=== PATIENT | male | born 1970 | race Caucasian/White ===

== ENCOUNTER 2020-12-04 12:38 | Inpatient (IN) | payer OTHER ==
[2020-12-04 13:35] VITALS: BMI 19.0
[2020-12-04] MEDS ORDERED: ALBUTEROL SO4 HFA INHALER IH PRN (15:12)
[2020-12-04] MEDS ORDERED: MAG HYDROX/AL HYDROX/SIMETH 30 ML UNIT-DOSE CUP PO PRN (15:12)
[2020-12-04] MEDS ORDERED: MENTHOL/PHENOL 1 EACH UD MM PRN (15:12)
[2020-12-04] MEDS ORDERED: ACETAMINOPHEN 325 MG TABLET (FP) PO PRN ×2 (15:12)
[2020-12-04] MEDS ORDERED: NICOTINE POLACRILEX 2 MG GUM BUC PRN (15:12)
[2020-12-04] MEDS ORDERED: ONDANSETRON *ODT* 4 MG TABLET SL PRN (15:12)
[2020-12-04] MEDS ORDERED: IBUPROFEN 400 MG TABLET (FP) PO PRN (15:12)
[2020-12-04] MEDS ORDERED: METHOCARBAMOL 500 MG TABLET PO PRN (15:12)
[2020-12-04] MEDS ORDERED: MAGNESIUM HYDROX 2400MG/30ML ORAL SUSPENSION 30 ML CUP PO PRN (15:12)
[2020-12-04] MEDS ORDERED: MAGNESIUM CITRATE 300 ML BOTTLE PO PRN (15:12)
[2020-12-04] MEDS ORDERED: BISMUTH SUBSALICYLATE 262 MG/15 ML BTL PO PRN (15:12)
[2020-12-04] MEDS: PRENATAL VITAMINS W/ FOLIC ACID TABLET (FP) PO SCH (16:00)
[2020-12-04] MEDS: NICOTINE 7 MG/24 HOURS TOPICAL PATCH TD SCH (16:00)
[2020-12-04] MEDS: hydrOXYzine PAMOATE 25 MG CAPSULE (FP) PO SCH ×2 (17:29→22:10)
[2020-12-04] MEDS: MELATONIN 5 MG TABLETS PO SCH (22:10)
[2020-12-04] MEDS: THIAMINE HCL 100 MG TABLET (FP) PO SCH (22:10)
[2020-12-05] MEDS: hydrOXYzine PAMOATE 25 MG CAPSULE (FP) PO SCH ×5 (05:18→22:20)
[2020-12-05] MEDS ORDERED: METHADONE HCL 10 MG TABLET PO ONE (08:48)
[2020-12-05] MEDS ORDERED: diazePAM 5 MG TABLET PO PRN (09:32)
[2020-12-05] MEDS: PRENATAL VITAMINS W/ FOLIC ACID TABLET (FP) PO SCH (10:17)
[2020-12-05] MEDS: NICOTINE 7 MG/24 HOURS TOPICAL PATCH TD SCH (10:17)
[2020-12-05] MEDS: METHADONE HCL 40 MG DISPERSABLE TABLET PO SCH (10:18)
[2020-12-05] MEDS: diazePAM 5 MG TABLET PO SCH ×3 (10:18→22:18)
[2020-12-05 10:42] LABS: HEMATOCRIT 34.7 % (35.4-49); HEMOGLOBIN 11.6 GM/dL (11.7-16.9); MCH 30.3 pg (25.7-33.7); MCHC 33.5 g/dl (32.0-35.9); MEAN CELL VOLUME 90.4 fl (80-96); PLATELET COUNT 194 10^3/uL (134-434); RBC 3.84 M/mm3 (4.00-5.60); WHITE BLOOD COUNT 4.2 K/mm3 (4.0-10.0)
[2020-12-05 10:48] LABS: ALBUMIN 3.3 g/dl (3.4-5.0)
[2020-12-05 10:51] LABS: CALCIUM 8.6 mg/dL (8.5-10.1); CREATININE 0.8 mg/dL (0.55-1.3)
[2020-12-05 10:52] LABS: TOT PROT 6.5 g/dl (6.4-8.2)
[2020-12-05 11:14] LABS: BLOOD UREA NITROGEN 17.1 mg/dL (7-18)
[2020-12-05 11:55] LABS: HIV INTERPRETATION NEGATIVE (NEGATIVE)
[2020-12-05 11:57] LABS: BILIRUBIN,TOTAL 0.5 mg/dL (0.2-1)
[2020-12-05] MEDS: MELATONIN 5 MG TABLETS PO SCH (22:18)
[2020-12-05] MEDS: THIAMINE HCL 100 MG TABLET (FP) PO SCH (22:18)
[2020-12-06] MEDS: hydrOXYzine PAMOATE 25 MG CAPSULE (FP) PO SCH ×5 (05:21→22:44)
[2020-12-06] MEDS: diazePAM 5 MG TABLET PO SCH ×4 (05:21→22:44)
[2020-12-06] MEDS: METHADONE HCL 40 MG DISPERSABLE TABLET PO SCH (05:21)
[2020-12-06] MEDS: PRENATAL VITAMINS W/ FOLIC ACID TABLET (FP) PO SCH (10:11)
[2020-12-06] MEDS: NICOTINE 7 MG/24 HOURS TOPICAL PATCH TD SCH (10:11)
[2020-12-06] MEDS ORDERED: COVID-19 VAC,AD26(JANSSEN)/PF 0.5 ML IM ONE (13:00)
[2020-12-06] MEDS: MELATONIN 5 MG TABLETS PO SCH (22:43)
[2020-12-06] MEDS: THIAMINE HCL 100 MG TABLET (FP) PO SCH (22:43)
[2020-12-07] MEDS: METHADONE HCL 40 MG DISPERSABLE TABLET PO SCH (05:08)
[2020-12-07] MEDS: hydrOXYzine PAMOATE 25 MG CAPSULE (FP) PO SCH ×5 (05:08→22:41)
[2020-12-07] MEDS: diazePAM 5 MG TABLET PO SCH ×3 (05:09→22:37)
[2020-12-07] MEDS: NICOTINE 7 MG/24 HOURS TOPICAL PATCH TD SCH (10:15)
[2020-12-07] MEDS: PRENATAL VITAMINS W/ FOLIC ACID TABLET (FP) PO SCH (10:16)
[2020-12-07] MEDS: MELATONIN 5 MG TABLETS PO SCH (22:36)
[2020-12-07] MEDS: THIAMINE HCL 100 MG TABLET (FP) PO SCH (22:36)
[2020-12-08] MEDS: METHADONE HCL 40 MG DISPERSABLE TABLET PO SCH (05:22)
[2020-12-08] MEDS: diazePAM 5 MG TABLET PO SCH ×2 (05:22→17:42)
[2020-12-08] MEDS: hydrOXYzine PAMOATE 25 MG CAPSULE (FP) PO SCH ×5 (05:22→22:23)
[2020-12-08 10:08] LABS: SARS-CoV-2 NAA Not Detected (Not Detected)
[2020-12-08] MEDS: PRENATAL VITAMINS W/ FOLIC ACID TABLET (FP) PO SCH (10:26)
[2020-12-08] MEDS: NICOTINE 7 MG/24 HOURS TOPICAL PATCH TD SCH (10:26)
[2020-12-08] MEDS: THIAMINE HCL 100 MG TABLET (FP) PO SCH (22:24)
[2020-12-08] MEDS: MELATONIN 5 MG TABLETS PO SCH (22:24)
[2020-12-09] MEDS: METHADONE HCL 40 MG DISPERSABLE TABLET PO SCH (05:09)
[2020-12-09] MEDS: hydrOXYzine PAMOATE 25 MG CAPSULE (FP) PO SCH ×2 (05:10→11:06)
[2020-12-09] MEDS ORDERED: diazePAM 5 MG TABLET PO ONE (06:00)
[2020-12-09 09:45] VITALS: BP 110/60; PULSE 67; TEMP 96.4
[2020-12-09] MEDS: PRENATAL VITAMINS W/ FOLIC ACID TABLET (FP) PO SCH (11:06)
[2020-12-09] MEDS: NICOTINE 7 MG/24 HOURS TOPICAL PATCH TD SCH (11:06)
== END 2020-12-09 12:20 | disposition home or self-care (01) | DRG 773 ==
LOC: YASAS 12:38 → UNDOADMIN 14:39 → Y6N 14:39
PROVIDERS: ADMIT Allergy & Immunology; ATTEND Allergy & Immunology
PROC: HZ2ZZZZ Detoxification Services for Substance Abuse Treatment (ICD-10-PCS; principal; 2020-12-04)
DX: F10.230 Alcohol dependence with withdrawal, uncomplicated (principal); F11.20 Opioid dependence, uncomplicated; F14.20 Cocaine dependence, uncomplicated; J45.20 Mild intermittent asthma, uncomplicated; G40.909 Epilepsy, unspecified, not intractable, without status epilepticus; Z91.013 Allergy to seafood; Z59.0 Homelessness
CPT/HCPCS: 0031A; 36415; 80053; 85027; 86780; 87389; 91303; 93005; 93010; C9803; U0003; U0005

== ENCOUNTER 2023-02-09 16:16 | Inpatient (IN) | payer OTHER ==
[2023-02-09 16:37] VITALS: BMI 18.6
[2023-02-09] MEDS ORDERED: BENZONATATE 200 MG CAPSULE PO PRN (18:56)
[2023-02-09] MEDS ORDERED: IBUPROFEN 600 MG TABLET (FP) PO PRN (18:56)
[2023-02-09] MEDS ORDERED: BISMUTH SUBSALICYLATE 524 MG/30 ML PO PRN (18:56)
[2023-02-09] MEDS ORDERED: DICYCLOMINE HCL 10 MG CAPSULE PO PRN (18:56)
[2023-02-09] MEDS ORDERED: NALOXONE HCL 0.4 MG/ML VIAL IM PRN (18:56)
[2023-02-09] MEDS ORDERED: MAG HYDROX/AL HYDROX/SIMETH 30 ML UNIT-DOSE CUP PO PRN (18:56)
[2023-02-09] MEDS ORDERED: LOPERAMIDE HCL 2 MG CAPSULE PO PRN (18:56)
[2023-02-09] MEDS ORDERED: ACETAMINOPHEN 325 MG TABLET (FP) PO PRN (18:56)
[2023-02-09] MEDS ORDERED: guaiFENesin 600 MG TABLET.ER (FP) PO PRN (18:56)
[2023-02-09] MEDS ORDERED: POLYETHYLENE GLYCOL (HEALTHYLAX) 3350 17 GM PACKET PO PRN (18:56)
[2023-02-09] MEDS ORDERED: IBUPROFEN 400 MG TABLET (FP) PO PRN (18:56)
[2023-02-09] MEDS ORDERED: BENZOCAINE/MENTHOL (CHLORASEPTIC ) LOZENGE MM PRN (18:56)
[2023-02-09] MEDS ORDERED: NALOXONE HCL (KLOXXADO) 8 MG SPRAY NS PRN (18:56)
[2023-02-09] MEDS ORDERED: MAGNESIUM HYDROX 2400MG/30ML ORAL SUSPENSION 30 ML CUP PO PRN (18:56)
[2023-02-09] MEDS ORDERED: ONDANSETRON *ODT* 4 MG TABLET SL PRN (18:56)
[2023-02-09] MEDS ORDERED: ALBUTEROL SO4 HFA INHALER IH PRN (19:41)
[2023-02-09] MEDS: APIXABAN 5 MG TABLET PO SCH (22:49)
[2023-02-09] MEDS: MELATONIN 5 MG TABLETS PO SCH (22:51)
[2023-02-09] MEDS: THIAMINE HCL 100 MG TABLET (FP) PO SCH (22:51)
[2023-02-10] MEDS: METHOCARBAMOL 500 MG TABLET PO PRN (01:34)
[2023-02-10] MEDS: hydrOXYzine PAMOATE 25 MG CAPSULE (FP) PO PRN (01:34)
[2023-02-10] MEDS: APIXABAN 5 MG TABLET PO SCH ×2 (09:36→22:35)
[2023-02-10] MEDS: PRENATAL VITAMINS W/ FOLIC ACID TABLET (FP) PO SCH (09:36)
[2023-02-10] MEDS ORDERED: methaDONE HCL 10 MG TABLET (FOR DETOX USE ONLY) PO ONE (10:00)
[2023-02-10] MEDS ORDERED: DIVALPROEX SODIUM 500 MG TABLET E.C. PO SCH (10:00)
[2023-02-10 10:16] LABS: HEMATOCRIT 36.1 % (35.4-49); HEMOGLOBIN 11.8 GM/dL (11.7-16.9); MCH 29.6 pg (25.7-33.7); MCHC 32.6 g/dl (32.0-35.9); MEAN PLT VOLUME 8.9 fl (7.5-11.1); PLATELET COUNT 350 10^3/uL (134-434); RBC 3.97 M/mm3 (4.00-5.60); RDW 14.2 % (11.9-15.9); WHITE BLOOD COUNT 4.3 K/mm3 (4.0-10.0)
[2023-02-10 10:17] LABS: POTASSIUM 4.4 mmol/L (3.5-5.1)
[2023-02-10 10:20] LABS: CALCIUM 8.8 mg/dL (8.5-10.1)
[2023-02-10 10:21] LABS: ALBUMIN 3.2 g/dl (3.4-5.0); BLOOD UREA NITROGEN 9.7 mg/dL (7-18)
[2023-02-10 10:25] LABS: CREATININE 0.8 mg/dL (0.55-1.3)
[2023-02-10 10:26] LABS: BILIRUBIN,TOTAL 0.3 mg/dL (0.2-1); TOT PROT 7.3 g/dl (6.4-8.2)
[2023-02-10] MEDS ORDERED: DIVALPROEX SODIUM 500 MG TABLET E.C. PO ONE (16:00)
[2023-02-10] MEDS: THIAMINE HCL 100 MG TABLET (FP) PO SCH (22:35)
[2023-02-10] MEDS: DIVALPROEX SODIUM 500 MG TABLET E.C. PO SCH (22:35)
[2023-02-10] MEDS: MELATONIN 5 MG TABLETS PO SCH (22:36)
[2023-02-11] MEDS: hydrOXYzine PAMOATE 25 MG CAPSULE (FP) PO PRN ×2 (03:33→22:44)
[2023-02-11] MEDS: METHOCARBAMOL 500 MG TABLET PO PRN ×3 (03:33→22:44)
[2023-02-11] MEDS: DIVALPROEX SODIUM 500 MG TABLET E.C. PO SCH ×2 (10:25→22:44)
[2023-02-11] MEDS: APIXABAN 5 MG TABLET PO SCH ×2 (10:25→22:44)
[2023-02-11] MEDS: PRENATAL VITAMINS W/ FOLIC ACID TABLET (FP) PO SCH (10:27)
[2023-02-11] MEDS: MELATONIN 5 MG TABLETS PO SCH (22:44)
[2023-02-11] MEDS: THIAMINE HCL 100 MG TABLET (FP) PO SCH (22:44)
[2023-02-12] MEDS: METHOCARBAMOL 500 MG TABLET PO PRN ×2 (04:01→10:10)
[2023-02-12] MEDS ORDERED: methaDONE HCL 10 MG TABLET (FOR DETOX USE ONLY) PO ONE (10:00)
[2023-02-12] MEDS: hydrOXYzine PAMOATE 25 MG CAPSULE (FP) PO PRN (10:10)
[2023-02-12] MEDS: PRENATAL VITAMINS W/ FOLIC ACID TABLET (FP) PO SCH (10:10)
[2023-02-12] MEDS: APIXABAN 5 MG TABLET PO SCH ×2 (10:10→22:33)
[2023-02-12] MEDS: DIVALPROEX SODIUM 500 MG TABLET E.C. PO SCH ×2 (10:10→22:33)
[2023-02-12] MEDS: THIAMINE HCL 100 MG TABLET (FP) PO SCH (22:33)
[2023-02-12] MEDS: MELATONIN 5 MG TABLETS PO SCH (22:34)
[2023-02-13] MEDS: DIVALPROEX SODIUM 500 MG TABLET E.C. PO SCH ×2 (09:05→22:17)
[2023-02-13] MEDS: APIXABAN 5 MG TABLET PO SCH ×2 (09:05→22:17)
[2023-02-13] MEDS: hydrOXYzine PAMOATE 25 MG CAPSULE (FP) PO PRN ×2 (09:05→22:17)
[2023-02-13] MEDS: METHOCARBAMOL 500 MG TABLET PO PRN ×2 (09:06→22:17)
[2023-02-13] MEDS: PRENATAL VITAMINS W/ FOLIC ACID TABLET (FP) PO SCH (09:07)
[2023-02-13] MEDS: THIAMINE HCL 100 MG TABLET (FP) PO SCH (22:17)
[2023-02-13] MEDS: MELATONIN 5 MG TABLETS PO SCH (22:17)
[2023-02-14] MEDS ORDERED: methaDONE HCL 10 MG TABLET (FOR DETOX USE ONLY) PO ONE (10:00)
[2023-02-14] MEDS: DIVALPROEX SODIUM 500 MG TABLET E.C. PO SCH ×2 (10:20→22:47)
[2023-02-14] MEDS: PRENATAL VITAMINS W/ FOLIC ACID TABLET (FP) PO SCH (10:20)
[2023-02-14] MEDS: APIXABAN 5 MG TABLET PO SCH ×2 (10:20→22:47)
[2023-02-14] MEDS: THIAMINE HCL 100 MG TABLET (FP) PO SCH (22:47)
[2023-02-14] MEDS: MELATONIN 5 MG TABLETS PO SCH (22:48)
[2023-02-15] MEDS: PRENATAL VITAMINS W/ FOLIC ACID TABLET (FP) PO SCH (10:12)
[2023-02-15] MEDS: APIXABAN 5 MG TABLET PO SCH (10:13)
[2023-02-15] MEDS: DIVALPROEX SODIUM 500 MG TABLET E.C. PO SCH (10:13)
[2023-02-15 11:00] VITALS: BP 105/60; PULSE 80; RESP 18; TEMP 97.5
== END 2023-02-15 12:15 | disposition home or self-care (01) | DRG 773 ==
LOC: YASAS 16:16 → Y6N 19:30
PROVIDERS: ADMIT Allergy & Immunology; ATTEND Surgery
PROC: HZ2ZZZZ Detoxification Services for Substance Abuse Treatment (ICD-10-PCS; principal; 2023-02-09)
DX: F11.23 Opioid dependence with withdrawal (principal); F14.20 Cocaine dependence, uncomplicated; F17.210 Nicotine dependence, cigarettes, uncomplicated; G40.909 Epilepsy, unspecified, not intractable, without status epilepticus; J45.20 Mild intermittent asthma, uncomplicated; Z86.718 Personal history of other venous thrombosis and embolism; Z79.01 Long term (current) use of anticoagulants
CPT/HCPCS: 36415; 80053; 80164; 85027; 86780; 87635

== ENCOUNTER 2023-03-24 21:48 | Inpatient (IN) | payer OTHER ==
[2023-03-24 23:48] VITALS: BMI 18.8
[2023-03-25] MEDS ORDERED: cloNIDine HCL 0.1 MG TABLET PO PRN (00:05)
[2023-03-25] MEDS ORDERED: methaDONE HCL 10 MG TABLET (FOR DETOX USE ONLY) PO ONE (00:05)
[2023-03-25] MEDS ORDERED: ALBUTEROL SO4 HFA INHALER IH PRN (00:05)
[2023-03-25] MEDS ORDERED: MAG HYDROX/AL HYDROX/SIMETH 30 ML UNIT-DOSE CUP PO PRN (00:06)
[2023-03-25] MEDS ORDERED: P-EPHED 60MG/TRIPROLIDI 2.5MG TABLET PO PRN (00:06)
[2023-03-25] MEDS ORDERED: ONDANSETRON *ODT* 4 MG TABLET SL PRN (00:06)
[2023-03-25] MEDS ORDERED: ACETAMINOPHEN 325 MG TABLET (FP) PO PRN (00:06)
[2023-03-25] MEDS ORDERED: LOPERAMIDE HCL 2 MG CAPSULE PO PRN (00:06)
[2023-03-25] MEDS ORDERED: NALOXONE HCL 0.4 MG/ML VIAL IM PRN (00:06)
[2023-03-25] MEDS ORDERED: DICYCLOMINE HCL 10 MG CAPSULE PO PRN (00:06)
[2023-03-25] MEDS ORDERED: MAGNESIUM HYDROX 2400MG/30ML ORAL SUSPENSION 30 ML CUP PO PRN (00:06)
[2023-03-25] MEDS ORDERED: METHOCARBAMOL 500 MG TABLET PO PRN (00:06)
[2023-03-25] MEDS ORDERED: BENZONATATE 200 MG CAPSULE PO PRN (00:06)
[2023-03-25] MEDS ORDERED: POLYETHYLENE GLYCOL (HEALTHYLAX) 3350 17 GM PACKET PO PRN (00:06)
[2023-03-25] MEDS ORDERED: NALOXONE HCL (KLOXXADO) 8 MG SPRAY NS PRN (00:06)
[2023-03-25] MEDS ORDERED: BENZOCAINE/MENTHOL (CHLORASEPTIC ) LOZENGE MM PRN (00:06)
[2023-03-25] MEDS ORDERED: guaiFENesin 600 MG TABLET.ER (FP) PO PRN (00:06)
[2023-03-25] MEDS ORDERED: methaDONE HCL 10 MG TABLET (FOR DETOX USE ONLY) ONE (01:58)
[2023-03-25] MEDS: APIXABAN 5 MG TABLET PO SCH ×3 (02:45→22:33)
[2023-03-25] MEDS ORDERED: DIVALPROEX SODIUM 500 MG TABLET E.C. PO SCH (10:00)
[2023-03-25] MEDS ORDERED: PRENATAL VITAMINS W/ FOLIC ACID TABLET (FP) PO SCH (10:00)
[2023-03-25] MEDS ORDERED: FOLIC ACID 1 MG TABLET (FP) PO SCH (10:00)
[2023-03-25 20:51] VITALS: BP 141/74; PULSE 85; TEMP 97.6
[2023-03-25 21:08] VITALS: RESP 24
[2023-03-25] MEDS ORDERED: THIAMINE HCL 100 MG TABLET (FP) PO SCH (22:00)
[2023-03-25] MEDS ORDERED: MELATONIN 5 MG TABLETS PO SCH (22:00)
[2023-03-26] MEDS ORDERED: methaDONE HCL 10 MG TABLET (FOR DETOX USE ONLY) PO ONE (10:00)
[2023-03-28] MEDS ORDERED: methaDONE HCL 10 MG TABLET (FOR DETOX USE ONLY) PO ONE (10:00)
== END 2023-03-25 23:58 | disposition short-term general hospital (02) | DRG 773 ==
LOC: YASAS 21:48 → Y3N 03-25 02:29
PROVIDERS: ADMIT Allergy & Immunology; ATTEND Surgery
PROC: HZ2ZZZZ Detoxification Services for Substance Abuse Treatment (ICD-10-PCS; principal; 2023-03-25)
DX: F11.23 Opioid dependence with withdrawal (principal); F14.20 Cocaine dependence, uncomplicated; F17.210 Nicotine dependence, cigarettes, uncomplicated; G40.909 Epilepsy, unspecified, not intractable, without status epilepticus; I48.91 Unspecified atrial fibrillation; Z86.718 Personal history of other venous thrombosis and embolism; Z79.01 Long term (current) use of anticoagulants
CPT/HCPCS: 82962; 87635; 87811

== ENCOUNTER 2023-03-25 21:09 | Observation (INO) | payer OTHER ==
[2023-03-25 23:37] LABS: BASO % 0.8 % (0-2.0); EOS % 1.3 % (0-4.5); HEMATOCRIT 33.8 % (35.4-49); HEMOGLOBIN 11.7 GM/dL (11.7-16.9); LYMPH % 23.4 % (8-40); MCHC 34.5 g/dl (32.0-35.9); MEAN PLT VOLUME 6.8 fl (7.5-11.1); MONO % 5.9 % (3.8-10.2); NEUT % 68.6 % (42.8-82.8); PLATELET COUNT 311 10^3/uL (134-434); RBC 3.89 M/mm3 (4.00-5.60); RDW 12.9 % (11.9-15.9); WHITE BLOOD COUNT 4.9 K/mm3 (4.0-10.0)
[2023-03-25 23:39] LABS: EPI CELLS 0 /uL (0-25.1); HYALINE CASTS 0 /uL (0-3.1); PH,URINE 7.5 (5.0-8.0); URINE APPEARANCE CLEAR; URINE BACTERIA 133 /uL (0-1359); URINE BILIRUBIN NEGATIVE (NEGATIVE); URINE COLOR YELLOW; URINE GLUCOSE (UA) NEGATIVE (NEGATIVE); URINE KETONE TRACE (NEGATIVE); URINE LEUK ESTERASE NEGATIVE (NEGATIVE); URINE NITRITE NEGATIVE (NEGATIVE); URINE PROTEIN 1+ (NEGATIVE); URINE RBC 32 /uL (0-23.9); URINE UROBILINOGEN 0.2 mg/dL (0.2-1.0)
[2023-03-25 23:51] LABS: URINE WBC 132.4 /uL (0-25.8)
[2023-03-26 00:02] LABS: POTASSIUM 3.8 mmol/L (3.5-5.1)
[2023-03-26 00:04] LABS: ALBUMIN 3.1 g/dl (3.4-5.0); BLOOD UREA NITROGEN 11.6 mg/dL (7-18); CALCIUM 8.1 mg/dL (8.5-10.1)
[2023-03-26 00:07] LABS: CREATININE 0.7 mg/dL (0.55-1.3)
[2023-03-26 00:09] LABS: BILIRUBIN,TOTAL 0.1 mg/dL (0.2-1); TOT PROT 7.1 g/dl (6.4-8.2)
[2023-03-26] MEDS ORDERED: levETIRAcetam 500 MG/5 ML INJECTION VIAL IVPB ONE ×2 (00:23→00:25)
[2023-03-26] MEDS ORDERED: chlordiazePOXIDE HCL 25 MG CAPSULE PO PRN (02:48)
[2023-03-26] MEDS ORDERED: methaDONE HCL 10 MG TABLET PO ONE (02:52)
[2023-03-26] MEDS ORDERED: cloNIDine HCL 0.1 MG TABLET PO PRN (02:52)
[2023-03-26] MEDS ORDERED: ALBUTEROL SO4 HFA INHALER IH PRN (02:57)
[2023-03-26] MEDS: chlordiazePOXIDE HCL 25 MG CAPSULE PO SCH ×2 (06:50→10:33)
[2023-03-26] MEDS ORDERED: levETIRAcetam 500 MG/5 ML INJECTION VIAL IVPB SCH (08:00)
[2023-03-26] MEDS ORDERED: THIAMINE HCL 100 MG TABLET (FP) PO SCH (10:00)
[2023-03-26] MEDS ORDERED: DIVALPROEX SODIUM 500 MG TABLET E.C. PO SCH (10:00)
[2023-03-26] MEDS ORDERED: FOLIC ACID 1 MG TABLET (FP) PO SCH (10:00)
[2023-03-26] MEDS ORDERED: CEFTRIAXONE 1 GM in DEXTROSE 5%-WATER - 50 ML IVPB SCH (10:00)
[2023-03-26] MEDS ORDERED: APIXABAN 5 MG TABLET PO SCH (10:00)
[2023-03-26 13:14] LABS: MAGNESIUM 2.1 mg/dL (1.8-2.4)
[2023-03-26 13:17] LABS: PHOSPHOROUS 3.2 mg/dL (2.5-4.9)
[2023-03-26 14:26] VITALS: BP 136/80; PULSE 18; RESP 18; TEMP 98.2
[2023-03-27] MEDS ORDERED: chlordiazePOXIDE HCL 25 MG CAPSULE PO SCH (05:00)
[2023-03-28] MEDS ORDERED: chlordiazePOXIDE HCL 10 MG CAPSULE PO PRN
[2023-03-28] MEDS ORDERED: chlordiazePOXIDE HCL 10 MG CAPSULE PO SCH (05:00)
[2023-03-28] MEDS ORDERED: methaDONE HCL 10 MG TABLET PO ONE (10:00)
[2023-03-29] MEDS ORDERED: chlordiazePOXIDE HCL 10 MG CAPSULE PO SCH (05:00)
[2023-03-30] MEDS ORDERED: chlordiazePOXIDE HCL 10 MG CAPSULE PO ONE (05:00)
[2023-03-30] MEDS ORDERED: methaDONE HCL 10 MG TABLET PO ONE (10:00)
== END 2023-03-26 17:10 | disposition other institution (70) ==
LOC: JER 21:09 → JERBED 03-26 00:54 → J6S 03-26 02:59
PROVIDERS: ADMIT Internal Medicine; ATTEND Internal Medicine
PROC: 3E033GC Introduction of Other Therapeutic Substance into Peripheral Vein, Percutaneous Approach (ICD-10-PCS; principal; 2023-03-26)
PROC: 3E033NZ Introduction of Analgesics, Hypnotics, Sedatives into Peripheral Vein, Percutaneous Approach (ICD-10-PCS; 2023-03-26)
DX: R56.9 Unspecified convulsions (principal); F19.10 Other psychoactive substance abuse, uncomplicated; F10.99 Alcohol use, unspecified with unspecified alcohol-induced disorder; J45.909 Unspecified asthma, uncomplicated; N39.0 Urinary tract infection, site not specified; I48.91 Unspecified atrial fibrillation; Z79.01 Long term (current) use of anticoagulants; Z86.718 Personal history of other venous thrombosis and embolism; F17.210 Nicotine dependence, cigarettes, uncomplicated; Z91.013 Allergy to seafood
CPT/HCPCS: 36415; 70450-TC; 80053; 80164; 80177; 81003; 83735; 84100; 85025; 87086; 93005; 93010; 96374; 96375; 96376; 99285-25; G0378

== ENCOUNTER 2023-03-26 20:22 | Emergency (ER) | payer OTHER ==
[2023-03-26 20:32] VITALS: BP 114/77; PULSE 88; RESP 18; TEMP 98.2; BMI 22.8
== END 2023-03-26 21:43 | disposition home or self-care (01) ==
LOC: JER 20:22
DX: S00.83XA Contusion of other part of head, initial encounter (principal); W07.XXXA Fall from chair, initial encounter
CPT/HCPCS: 99283-25

== ENCOUNTER 2023-05-30 22:24 | Inpatient (IN) | payer OTHER ==
[2023-05-31 01:24] VITALS: BMI 17.9
[2023-05-31] MEDS ORDERED: LOPERAMIDE HCL 2 MG CAPSULE PO PRN (06:16)
[2023-05-31] MEDS ORDERED: guaiFENesin 600 MG TABLET.ER (FP) PO PRN (06:16)
[2023-05-31] MEDS ORDERED: NALOXONE HCL (KLOXXADO) 8 MG SPRAY NS PRN (06:16)
[2023-05-31] MEDS ORDERED: MAG HYDROX/AL HYDROX/SIMETH 30 ML UNIT-DOSE CUP PO PRN (06:16)
[2023-05-31] MEDS ORDERED: NALOXONE HCL 0.4 MG/ML VIAL IM PRN (06:16)
[2023-05-31] MEDS ORDERED: ONDANSETRON *ODT* 4 MG TABLET SL PRN (06:16)
[2023-05-31] MEDS ORDERED: NICOTINE POLACRILEX 2 MG GUM BUC PRN (06:16)
[2023-05-31] MEDS ORDERED: POLYETHYLENE GLYCOL (HEALTHYLAX) 3350 17 GM PACKET PO PRN (06:16)
[2023-05-31] MEDS ORDERED: BENZONATATE 200 MG CAPSULE PO PRN (06:16)
[2023-05-31] MEDS ORDERED: BENZOCAINE/MENTHOL (CHLORASEPTIC ) LOZENGE MM PRN (06:16)
[2023-05-31] MEDS ORDERED: ACETAMINOPHEN 325 MG TABLET (FP) PO PRN (06:16)
[2023-05-31] MEDS ORDERED: MAGNESIUM HYDROX 2400MG/30ML ORAL SUSPENSION 30 ML CUP PO PRN (06:16)
[2023-05-31] MEDS ORDERED: BISMUTH SUBSALICYLATE 524 MG/30 ML PO PRN (06:16)
[2023-05-31] MEDS ORDERED: IBUPROFEN 600 MG TABLET (FP) PO PRN (06:16)
[2023-05-31] MEDS ORDERED: IBUPROFEN 400 MG TABLET (FP) PO PRN (06:16)
[2023-05-31] MEDS ORDERED: cloNIDine HCL 0.1 MG TABLET PO PRN (06:20)
[2023-05-31] MEDS ORDERED: methaDONE HCL 10 MG TABLET (FOR DETOX USE ONLY) PO ONE (06:45)
[2023-05-31] MEDS ORDERED: methaDONE HCL 10 MG TABLET (FOR DETOX USE ONLY) ONE (06:52)
[2023-05-31] MEDS ORDERED: NICOTINE 14 MG/24 HOURS TOPICAL PATCH TD ONE (09:30)
[2023-05-31] MEDS ORDERED: PRENATAL VITAMINS W/ FOLIC ACID TABLET (FP) PO ONE (09:30)
[2023-05-31] MEDS: PRENATAL VITAMINS W/ FOLIC ACID TABLET (FP) PO SCH (09:34)
[2023-05-31] MEDS: NICOTINE 14 MG/24 HOURS TOPICAL PATCH TD SCH (09:34)
[2023-05-31] MEDS: MELATONIN 5 MG TABLETS PO SCH (23:01)
[2023-05-31] MEDS: levETIRAcetam 500 MG TABLET (FP) PO SCH (23:02)
[2023-05-31] MEDS: THIAMINE HCL 100 MG TABLET (FP) PO SCH (23:02)
[2023-06-01] MEDS: diazePAM 5 MG TABLET PO PRN ×2 (05:20→22:21)
[2023-06-01] MEDS: ALBUTEROL SO4 HFA INHALER IH PRN ×2 (08:36→22:21)
[2023-06-01 09:59] LABS: HEMATOCRIT 36.1 % (35.4-49); HEMOGLOBIN 12.1 GM/dL (11.7-16.9); MCH 29.4 pg (25.7-33.7); MCHC 33.7 g/dl (32.0-35.9); MEAN CELL VOLUME 87.2 fl (80-96); MEAN PLT VOLUME 8.2 fl (7.5-11.1); PLATELET COUNT 294 10^3/uL (134-434); RBC 4.13 M/mm3 (4.00-5.60); RDW 14.2 % (11.9-15.9); WHITE BLOOD COUNT 2.7 K/mm3 (4.0-10.0)
[2023-06-01] MEDS: PRENATAL VITAMINS W/ FOLIC ACID TABLET (FP) PO SCH (10:16)
[2023-06-01] MEDS: NICOTINE 14 MG/24 HOURS TOPICAL PATCH TD SCH (10:16)
[2023-06-01] MEDS: hydrOXYzine PAMOATE 25 MG CAPSULE (FP) PO PRN (10:20)
[2023-06-01] MEDS: levETIRAcetam 500 MG TABLET (FP) PO SCH ×2 (10:20→22:22)
[2023-06-01] MEDS: METHOCARBAMOL 500 MG TABLET PO PRN (10:21)
[2023-06-01] MEDS: THIAMINE HCL 100 MG TABLET (FP) PO SCH (22:19)
[2023-06-01] MEDS: RIVAROXABAN 2.5 MG TABLET PO SCH (22:19)
[2023-06-01] MEDS: MELATONIN 5 MG TABLETS PO SCH (22:19)
[2023-06-02] MEDS: hydrOXYzine PAMOATE 25 MG CAPSULE (FP) PO PRN (05:11)
[2023-06-02] MEDS ORDERED: methaDONE HCL 10 MG TABLET (FOR DETOX USE ONLY) PO ONE (10:00)
[2023-06-02] MEDS: levETIRAcetam 500 MG TABLET (FP) PO SCH ×2 (10:14→22:08)
[2023-06-02] MEDS: PRENATAL VITAMINS W/ FOLIC ACID TABLET (FP) PO SCH (10:14)
[2023-06-02] MEDS: NICOTINE 14 MG/24 HOURS TOPICAL PATCH TD SCH (10:15)
[2023-06-02] MEDS: RIVAROXABAN 2.5 MG TABLET PO SCH ×2 (10:15→22:10)
[2023-06-02] MEDS: ALBUTEROL SO4 HFA INHALER IH PRN ×3 (10:17→22:09)
[2023-06-02 13:50] LABS: POTASSIUM 3.9 mmol/L (3.5-5.1); SODIUM 137 mmol/L (136-145)
[2023-06-02 13:52] LABS: BLOOD UREA NITROGEN 14.6 mg/dL (7-18); CALCIUM 9.5 mg/dL (8.5-10.1); CO2 23 mmol/L (21-32); GLUCOSE,RANDOM 94 mg/dL (74-106)
[2023-06-02 13:53] LABS: ALBUMIN 3.5 g/dl (3.4-5.0)
[2023-06-02 14:00] LABS: ALK PHOS 84 U/L (45-117); ANION GAP 8 mmol/L (4-13); BILIRUBIN,TOTAL 0.1 mg/dL (0.2-1); CHLORIDE 106 mmol/L (98-107); CREATININE 0.9 mg/dL (0.55-1.3); SGOT/AST 26 U/L (15-37); SGPT/ALT 32 U/L (13-61); TOT PROT 7.2 g/dl (6.4-8.2)
[2023-06-02] MEDS: diazePAM 5 MG TABLET PO PRN ×2 (17:20→22:08)
[2023-06-02] MEDS: MELATONIN 5 MG TABLETS PO SCH (22:08)
[2023-06-02] MEDS: THIAMINE HCL 100 MG TABLET (FP) PO SCH (22:08)
[2023-06-03] MEDS: ALBUTEROL SO4 HFA INHALER IH PRN ×3 (05:10→21:54)
[2023-06-03] MEDS: hydrOXYzine PAMOATE 25 MG CAPSULE (FP) PO PRN ×2 (05:10→17:10)
[2023-06-03] MEDS: PRENATAL VITAMINS W/ FOLIC ACID TABLET (FP) PO SCH (10:07)
[2023-06-03] MEDS: levETIRAcetam 500 MG TABLET (FP) PO SCH ×2 (10:07→21:54)
[2023-06-03] MEDS: NICOTINE 14 MG/24 HOURS TOPICAL PATCH TD SCH (10:07)
[2023-06-03] MEDS: RIVAROXABAN 2.5 MG TABLET PO SCH ×2 (10:07→21:54)
[2023-06-03] MEDS: METHOCARBAMOL 500 MG TABLET PO PRN (17:10)
[2023-06-03] MEDS: THIAMINE HCL 100 MG TABLET (FP) PO SCH (21:54)
[2023-06-03] MEDS: MELATONIN 5 MG TABLETS PO SCH (21:54)
[2023-06-04] MEDS: METHOCARBAMOL 500 MG TABLET PO PRN ×2 (05:11→22:08)
[2023-06-04] MEDS: NICOTINE 14 MG/24 HOURS TOPICAL PATCH TD SCH (09:24)
[2023-06-04] MEDS: levETIRAcetam 500 MG TABLET (FP) PO SCH ×2 (09:27→22:08)
[2023-06-04] MEDS: PRENATAL VITAMINS W/ FOLIC ACID TABLET (FP) PO SCH (09:27)
[2023-06-04] MEDS: RIVAROXABAN 2.5 MG TABLET PO SCH ×2 (09:27→22:07)
[2023-06-04] MEDS: ALBUTEROL SO4 HFA INHALER IH PRN ×2 (09:42→22:08)
[2023-06-04] MEDS ORDERED: methaDONE HCL 10 MG TABLET (FOR DETOX USE ONLY) PO ONE (10:00)
[2023-06-04] MEDS: THIAMINE HCL 100 MG TABLET (FP) PO SCH (22:07)
[2023-06-04] MEDS: MELATONIN 5 MG TABLETS PO SCH (22:08)
[2023-06-04] MEDS: hydrOXYzine PAMOATE 25 MG CAPSULE (FP) PO PRN (22:08)
[2023-06-05 06:31] VITALS: PULSE 90
[2023-06-05 09:16] VITALS: BP 120/81; RESP 18; TEMP 98.7
[2023-06-05] MEDS: RIVAROXABAN 2.5 MG TABLET PO SCH (09:22)
[2023-06-05] MEDS: levETIRAcetam 500 MG TABLET (FP) PO SCH (09:22)
[2023-06-05] MEDS: PRENATAL VITAMINS W/ FOLIC ACID TABLET (FP) PO SCH (09:23)
[2023-06-05] MEDS: NICOTINE 14 MG/24 HOURS TOPICAL PATCH TD SCH (09:23)
== END 2023-06-05 09:54 | disposition home or self-care (01) | DRG 773 ==
LOC: YASAS 22:24 → Y6N 05-31 12:33
PROVIDERS: ADMIT Allergy & Immunology; ATTEND Surgery
PROC: HZ2ZZZZ Detoxification Services for Substance Abuse Treatment (ICD-10-PCS; principal; 2023-05-31)
DX: F11.23 Opioid dependence with withdrawal (principal); F10.20 Alcohol dependence, uncomplicated; F17.210 Nicotine dependence, cigarettes, uncomplicated; F19.282 Other psychoactive substance dependence with psychoactive substance-induced sleep disorder; F31.9 Bipolar disorder, unspecified; G40.909 Epilepsy, unspecified, not intractable, without status epilepticus; I48.91 Unspecified atrial fibrillation; J45.20 Mild intermittent asthma, uncomplicated; Z86.718 Personal history of other venous thrombosis and embolism; Z79.01 Long term (current) use of anticoagulants
CPT/HCPCS: 36415; 80053; 80164; 80307; 85027; 86780; 87635

== ENCOUNTER 2023-11-03 19:31 | Inpatient (IN) | payer OTHER ==
[2023-11-03 20:19] VITALS: BMI 20.5
[2023-11-03] MEDS ORDERED: ALBUTEROL SO4 HFA INHALER IH PRN (20:32)
[2023-11-03] MEDS ORDERED: BENZONATATE 200 MG CAPSULE PO PRN (20:50)
[2023-11-03] MEDS ORDERED: NALOXONE HCL (KLOXXADO) 8 MG SPRAY NS PRN (20:50)
[2023-11-03] MEDS ORDERED: NICOTINE POLACRILEX 2 MG LOZENGE BC PRN (20:50)
[2023-11-03] MEDS ORDERED: MAG HYDROX/AL HYDROX/SIMETH 30 ML UNIT-DOSE CUP PO PRN (20:50)
[2023-11-03] MEDS ORDERED: POLYETHYLENE GLYCOL (HEALTHYLAX) 3350 17 GM PACKET PO PRN (20:50)
[2023-11-03] MEDS ORDERED: LOPERAMIDE HCL 2 MG CAPSULE PO PRN (20:50)
[2023-11-03] MEDS ORDERED: NALOXONE HCL 0.4 MG/ML VIAL IM PRN (20:50)
[2023-11-03] MEDS ORDERED: NICOTINE POLACRILEX 2 MG GUM BUC PRN (20:50)
[2023-11-03] MEDS ORDERED: hydrOXYzine PAMOATE 25 MG CAPSULE (FP) PO PRN (20:50)
[2023-11-03] MEDS ORDERED: ONDANSETRON *ODT* 4 MG TABLET SL PRN (20:50)
[2023-11-03] MEDS ORDERED: ACETAMINOPHEN 325 MG TABLET (FP) PO PRN (20:50)
[2023-11-03] MEDS ORDERED: guaiFENesin 600 MG TABLET.ER (FP) PO PRN (20:50)
[2023-11-03] MEDS ORDERED: DICYCLOMINE HCL 10 MG CAPSULE PO PRN (20:50)
[2023-11-03] MEDS ORDERED: BENZOCAINE/MENTHOL (CHLORASEPTIC ) LOZENGE MM PRN (20:50)
[2023-11-03] MEDS ORDERED: MAGNESIUM HYDROX 2400MG/30ML ORAL SUSPENSION 30 ML CUP PO PRN (20:50)
[2023-11-03] MEDS ORDERED: levETIRAcetam 500 MG TABLET (FP) PO ONE (22:46)
[2023-11-03] MEDS ORDERED: MELATONIN 5 MG TABLETS ONE (22:47)
[2023-11-03] MEDS: RIVAROXABAN 2.5 MG TABLET PO SCH (22:49)
[2023-11-03] MEDS: THIAMINE 100 MG TABLET PO SCH (22:51)
[2023-11-03] MEDS: MELATONIN 5 MG TABLETS PO SCH (22:51)
[2023-11-03] MEDS: levETIRAcetam 500 MG TABLET (FP) PO SCH (22:51)
[2023-11-04] MEDS: METHOCARBAMOL 500 MG TABLET PO PRN (10:38)
[2023-11-04] MEDS: PRENATAL VITAMINS W/ FOLIC ACID TABLET (FP) PO SCH (10:38)
[2023-11-04] MEDS: methaDONE HCL 10 MG TABLET PO ONE (11:35)
[2023-11-04 11:47] LABS: HEMATOCRIT 35.1 % (35.4-49); HEMOGLOBIN 11.9 GM/dL (11.7-16.9); MCH 30.6 pg (25.7-33.7); MEAN CELL VOLUME 90.1 fl (80-96); PLATELET COUNT 274 10^3/uL (134-434); RDW 13.7 % (11.9-15.9); WHITE BLOOD COUNT 4.7 K/mm3 (4.0-10.0)
[2023-11-04 11:52] LABS: CHLORIDE 104 mmol/L (98-107); POTASSIUM 4.2 mmol/L (3.5-5.1); SODIUM 138 mmol/L (136-145)
[2023-11-04 11:58] LABS: ANION GAP 7 mmol/L (4-13); CALCIUM 9.1 mg/dL (8.5-10.1); CO2 27 mmol/L (21-32); GLUCOSE,RANDOM 80 mg/dL (74-106)
[2023-11-04 11:59] LABS: ALBUMIN 3.7 g/dl (3.4-5.0); BLOOD UREA NITROGEN 16.9 mg/dL (7-18)
[2023-11-04 12:01] LABS: CREATININE 0.9 mg/dL (0.55-1.3); SGOT/AST 41 U/L (15-37); SGPT/ALT 34 U/L (13-61)
[2023-11-04 12:04] LABS: ALK PHOS 81 U/L (45-117)
[2023-11-04 12:18] LABS: TOT PROT 7.3 g/dl (6.4-8.2)
[2023-11-05] MEDS: methaDONE HCL 10 MG TABLET PO SCH (06:01)
[2023-11-05 09:16] VITALS: TEMP 98.4
[2023-11-05 12:47] VITALS: BP 102/63; PULSE 59; RESP 18
== END 2023-11-05 12:55 | disposition home or self-care (01) | DRG 773 ==
LOC: YASAS 19:31 → Y6N 23:02
PROVIDERS: ADMIT Allergy & Immunology; ATTEND Surgery
PROC: HZ2ZZZZ Detoxification Services for Substance Abuse Treatment (ICD-10-PCS; principal; 2023-11-03)
DX: F11.20 Opioid dependence, uncomplicated (principal); F10.20 Alcohol dependence, uncomplicated; F14.20 Cocaine dependence, uncomplicated; F17.210 Nicotine dependence, cigarettes, uncomplicated; G40.909 Epilepsy, unspecified, not intractable, without status epilepticus; J45.20 Mild intermittent asthma, uncomplicated; Z86.718 Personal history of other venous thrombosis and embolism; Z79.01 Long term (current) use of anticoagulants
CPT/HCPCS: 36415; 80053; 80305; 80307; 85027; 86780

== ENCOUNTER 2023-12-01 19:11 | Inpatient (IN) | payer OTHER ==
[2023-12-01 19:35] VITALS: BMI 19.3
[2023-12-01] MEDS ORDERED: IBUPROFEN 400 MG TABLET (FP) PO PRN (20:04)
[2023-12-01] MEDS ORDERED: POLYETHYLENE GLYCOL (HEALTHYLAX) 3350 17 GM PACKET PO PRN (20:04)
[2023-12-01] MEDS ORDERED: NALOXONE HCL 0.4 MG/ML VIAL IM PRN (20:04)
[2023-12-01] MEDS ORDERED: MAG HYDROX/AL HYDROX/SIMETH 30 ML UNIT-DOSE CUP PO PRN (20:04)
[2023-12-01] MEDS ORDERED: ACETAMINOPHEN 325 MG TABLET (FP) PO PRN (20:04)
[2023-12-01] MEDS ORDERED: BISMUTH SUBSALICYLATE 524 MG/30 ML PO PRN (20:04)
[2023-12-01] MEDS ORDERED: DICYCLOMINE HCL 10 MG CAPSULE PO PRN (20:04)
[2023-12-01] MEDS ORDERED: ONDANSETRON *ODT* 4 MG TABLET SL PRN (20:04)
[2023-12-01] MEDS ORDERED: BENZOCAINE/MENTHOL (CHLORASEPTIC ) LOZENGE MM PRN (20:04)
[2023-12-01] MEDS ORDERED: guaiFENesin 600 MG TABLET.ER (FP) PO PRN (20:04)
[2023-12-01] MEDS ORDERED: hydrOXYzine PAMOATE 25 MG CAPSULE (FP) PO PRN (20:04)
[2023-12-01] MEDS ORDERED: NALOXONE (NARCAN) HCL 4 MG/0.1 ML SPRAY NS PRN (20:04)
[2023-12-01] MEDS ORDERED: IBUPROFEN 600 MG TABLET (FP) PO PRN (20:04)
[2023-12-01] MEDS ORDERED: NICOTINE POLACRILEX 2 MG LOZENGE BC PRN (20:04)
[2023-12-01] MEDS ORDERED: MAGNESIUM HYDROX 2400MG/30ML ORAL SUSPENSION 30 ML CUP PO PRN (20:04)
[2023-12-01] MEDS ORDERED: LOPERAMIDE HCL 2 MG CAPSULE PO PRN (20:04)
[2023-12-01] MEDS ORDERED: BENZONATATE 200 MG CAPSULE PO PRN (20:04)
[2023-12-01] MEDS ORDERED: ALBUTEROL SO4 HFA INHALER IH PRN (20:16)
[2023-12-01] MEDS: MELATONIN 5 MG TABLETS PO SCH (23:15)
[2023-12-01] MEDS: THIAMINE 100 MG TABLET PO SCH (23:16)
[2023-12-01] MEDS: levETIRAcetam 500 MG TABLET (FP) PO SCH (23:16)
[2023-12-02] MEDS: PRENATAL VITAMINS W/ FOLIC ACID TABLET (FP) PO SCH (09:37)
[2023-12-02] MEDS: NICOTINE 14 MG/24 HOURS TOPICAL PATCH TD SCH (09:40)
[2023-12-02] MEDS ORDERED: diazePAM 5 MG TABLET PO PRN (09:46)
[2023-12-02] MEDS ORDERED: cloNIDine HCL 0.1 MG TABLET PO PRN (09:46)
[2023-12-02] MEDS: diazePAM 5 MG TABLET PO SCH (10:36)
[2023-12-02] MEDS: methaDONE HCL 10 MG TABLET (FOR DETOX USE ONLY) PO ONE (10:37)
[2023-12-02 12:25] LABS: HEMOGLOBIN 11.8 GM/dL (11.7-16.9); MCHC 34.7 g/dl (32.0-35.9); MEAN CELL VOLUME 89.3 fl (80-96); MEAN PLT VOLUME 8.4 fl (7.5-11.1); PLATELET COUNT 290 10^3/uL (134-434); RDW 13.6 % (11.9-15.9); WHITE BLOOD COUNT 3.8 K/mm3 (4.0-10.0)
[2023-12-02 12:55] LABS: CHLORIDE 104 mmol/L (98-107); SODIUM 141 mmol/L (136-145)
[2023-12-02 13:10] LABS: ALK PHOS 70 U/L (45-117); BILIRUBIN,TOTAL 0.5 mg/dL (0.2-1); GLUCOSE,RANDOM 86 mg/dL (74-106); SGPT/ALT 27 U/L (13-61); TOT PROT 6.7 g/dl (6.4-8.2)
[2023-12-02 13:12] LABS: ALBUMIN 3.3 g/dl (3.4-5.0); ANION GAP 6 mmol/L (4-13); BLOOD UREA NITROGEN 19.7 mg/dL (7-18); CALCIUM 8.9 mg/dL (8.5-10.1); CO2 31 mmol/L (21-32); CREATININE 0.8 mg/dL (0.55-1.3); SGOT/AST 23 U/L (15-37)
[2023-12-04] MEDS: diazePAM 5 MG TABLET PO SCH (05:25)
[2023-12-04 08:55] VITALS: BP 121/79; PULSE 81; RESP 17; TEMP 97.1
[2023-12-04] MEDS: methaDONE HCL 10 MG TABLET (FOR DETOX USE ONLY) PO ONE (10:53)
[2023-12-05] MEDS ORDERED: diazePAM 5 MG TABLET PO SCH (06:00)
[2023-12-06] MEDS ORDERED: diazePAM 5 MG TABLET PO ONE (06:00)
[2023-12-06] MEDS ORDERED: methaDONE HCL 10 MG TABLET (FOR DETOX USE ONLY) PO ONE (10:00)
== END 2023-12-04 08:22 | disposition left against medical advice (07) | DRG 770 ==
LOC: YASAS 19:11 → Y6N 20:13 → UNDOADMIN 20:13 → Y6N 20:14 → UNDOADMIN 20:14 → Y6N 12-02 09:48 → UNDOADMIN 12-02 09:48
PROVIDERS: ADMIT Allergy & Immunology; ATTEND Surgery
PROC: HZ2ZZZZ Detoxification Services for Substance Abuse Treatment (ICD-10-PCS; principal; 2023-12-01)
DX: F11.23 Opioid dependence with withdrawal (principal); F10.230 Alcohol dependence with withdrawal, uncomplicated; F14.20 Cocaine dependence, uncomplicated; F17.210 Nicotine dependence, cigarettes, uncomplicated; F19.282 Other psychoactive substance dependence with psychoactive substance-induced sleep disorder; G40.909 Epilepsy, unspecified, not intractable, without status epilepticus; J45.20 Mild intermittent asthma, uncomplicated; Z86.718 Personal history of other venous thrombosis and embolism; I25.2 Old myocardial infarction; Z86.79 Personal history of other diseases of the circulatory system; Z59.00 Homelessness unspecified
CPT/HCPCS: 36415; 80053; 80305; 80307; 85027; 86780; 93005; 93010